=== PATIENT | female | born 1985 | race American Indian/Alaskan Native ===

== ENCOUNTER 2021-02-15 15:06 | Emergency (ER) | payer MEDICAID ==
--- NOTE | 2021-02-15 15:39 | Event Note ---
ED Screening Note ED Screening Note: sent by [facility] for abnormal ultrasound LMP 12/09/20 [id number] believes she had miscarriage of this preg end of January vag bleeding This initial assessment/diagnostic orders/clinical plan/treatment(s) is/are subject to change based on patients health status, clinical progression and re- assessment by fellow clinical providers in the ED. Further treatment and workup at subsequent clinical providers discretion. Patient/guardian urged not to elope from the ED as their condition may be serious if not clinically assessed and managed. Initial orders include: ro retained product
[2021-02-15 15:41] VITALS: BP 130/77
[2021-02-15 16:19] LABS: Bilirubin,Urine NEG (Negative); Blood,Urine NEG (Negative); Color,Urine Straw (Yellow); Mucus,Urine FEW /HPF; Urobilinogen,Urine < 2.0 mg/dL (<2.0)
[2021-02-15 17:06] LABS: Basophils # (Auto) 0.1 K/mm3 (0.0-0.1); Basophils % (Auto) 0.7 % (0.0-1.8); Eosinophils # (Auto) 0.1 K/mm3 (0.0-0.4); Hematocrit 39.1 % (30.3-42.9); Hemoglobin 13.2 gm/dl (10.1-14.3); Lymphocytes # (Auto) 2.3 K/mm3 (1.2-5.4); Lymphocytes % (Auto) 23.4 % (13.4-35.0); Mean Corpuscular HGB Conc 34 % (30-34); Mean Corpuscular Volume 85 fl (79-97); Monocytes # (Auto) 0.6 K/mm3 (0.0-0.8); Monocytes % (Auto) 6.2 % (0.0-7.3); Platelet Count 219 K/mm3 (140-440); Red Blood Count 4.58 M/mm3 (3.65-5.03); Red Cell Distribution Width 13.6 % (13.2-15.2)
[2021-02-15 17:15] LABS: Blood Urea Nitrogen 14 mg/dL (7-17); Calcium 9.3 mg/dL (8.4-10.2); Hemolysis Index 13
[2021-02-15 17:32] LABS: BUN/Creatinine Ratio 20
--- NOTE | 2021-02-15 17:39 | Ultrasound Report ---
ULTRASOUND OBSTETRIC INDICATION / CLINICAL INFORMATION: Abnormal ultrasound. TECHNIQUE: Transabdominal and Transvaginal. COMPARISON: None available. FINDINGS: GESTATIONAL SAC: A 4.0 mm cystic structure is seen in the endometrial canal that may indicate a gesta tional sac. This would correspond to gestational age of 5 weeks and 1 day. YOLK SAC: No significant abnormality. EMBRYO/FETUS: None identified. ADNEXA: Mildly complex cyst in the left ovary that may indicate a corpus luteal cyst. FREE FLUID: None. ADDITIONAL FINDINGS: There is a 7.6 mm fibroid in the posterior uterine fundus. IMPRESSION: 1. Possible gestational sac in the uterus was sec size corresponding to 5 weeks and 1 day. Depending on the HED value, follow-up ultrasound in one to 2 weeks can be performed to reevaluate for intrauter ine . Signer Name: Ayo Hernandez MD Signed: 02/15/2021 5:34 PM Workstation Name: [id number]
--- NOTE | 2021-02-15 18:15 | Emergency Department Report ---
ED General Adult HPI - General Chief complaint: Vaginal Bleeding Stated complaint: POSSIBLE ETOPIC Time Seen by Provider: 02/15/21 15:37 Source: patient Mode of arrival: Ambulatory Limitations: No Limitations - History of Present Illness Initial comments: 35-year-old female (A4; LMP late November) presents to the emergency department for further evaluation of abnormal ultrasound results. Patient was sent to the emergency department by her gasoline engine inspector due to concern for retained products of conception. Ultrasound performed in the clinic today was reportedly nonspecific. Patient states she began experiencing lower abdominal discomfort and vaginal bleeding on January 21. Symptoms largely resolved by the end of the month. When she returned to her gasoline engine inspector for confirmatory testing, her hCG was still positive. Patient states she has not experienced any abdominal pain or vaginal bleeding in the last 24 hours. No preceding trauma. She did not undergo medical or D&C at any point during this . Denies fever, chills, abdominal pain, vaginal bleeding, vaginal discharge, back pain, syncope. Denies other complaints at this time. - Related Data Allergies Allergy/AdvReac Type Severity Reaction Status Date / Time No Known Allergies Allergy Verified 02/15/21 15:41 ED Review of Systems ROS: Stated complaint: POSSIBLE ETOPIC Other details as noted in HPI Other: GENERAL: Negative for fever, chills, weight change, anorexia, fatigue. ENT: Negative for ear pain, difficulty hearing, sore throat, nasal congestion, epistaxis. CARDIOVASCULAR: Negative for chest pain, palpitations, lower extremity swelling. PULMONARY: Negative for cough, dyspnea, wheezing, orthopnea, cyanosis. GASTROINTESTINAL: Negative for abdominal pain, nausea, vomiting, diarrhea, constipation. MUSCULOSKELETAL: Negative for joint pain, joint swelling, myalgias, back pain, neck pain. NEUROLOGICAL: Negative for headache, seizure, syncope, paresthesias, weakness. INTEGUMENTARY: Negative for erythema, rash, diaphoresis, laceration, ecchymosis. HEMATOLOGICAL: Negative for hemoptysis, hematemesis, hematochezia, hematuria. PSYCHIATRIC: Negative for hallucinations, suicidal ideation, homicidal ideation, anxiety, depression. ED Past Medical Hx - Past Medical History Previous Medical History?: No - Social History Smoking Status: Current Some Day Smoker Substance Use Type: None ED Physical Exam - General Limitations: No Limitations - Other Other exam information: General: Awake and alert. No acute distress. Head: Atraumatic, normocephalic. Eyes: EOMI. Pupils are equal and round. Normal sclera and conjunctiva. ENT: Oral mucosa is moist. Normal pharyngeal exam. Neck: Supple. No lymphadenopathy. Pulmonary: No respiratory distress. Clear to auscultation bilaterally. Cardiac: Regular rate and rhythm. Pulses are palpable and equal bilaterally. No lower extremity cyanosis or edema. Skin: Warm and dry. No rashes. Abdomen: Soft, non-tender, non-protuberant. No guarding, rigidity, or rebound. Bowel sounds are normal. No organomegaly or masses noted. Pelvic: Female solar maintenance technician (Claire) present. Normal external inspection. Cervical os is closed. There is no cervical motion tenderness. No blood in the vaginal vault. No discharge. No adnexal tenderness or masses. No uterine tenderness. Back: Normal alignment. No CVA tenderness. Extremities: Symmetrical. Full range of motion intact. Neurological: Alert and oriented, appropriately interactive, no focal deficits. Psych: Cooperative. Appropriate mood and affect. Speech is evenly metered. Thoughts are logically construed. ED Course Vital Signs 02/15/21 15:38 Temperature 99.2 F Pulse Rate 81 Respiratory 20 Rate Blood Pressure 130/77 O2 Sat by Pulse 100 Oximetry ED Medical Decision Making - Lab Data Result diagrams: 02/15/21 16:36 02/15/21 16:36 - Radiology Data [facility] [address] [place] [address] Ultrasound Report Signed Patient: CELE CRUZ MR#: [id number] : 1985 Acct:[id number] Age/Sex: 35 / F ADM Date: 02/15/21 Loc: ED Attending Dr: Ordering Physician: ZIGGY ORTEGA Date of Service: 02/15/21 Procedure(s): US OB transvaginal Accession Number(s): [id number] cc: ZIGGY ORTEGA ULTRASOUND OBSTETRIC INDICATION / CLINICAL INFORMATION: Abnormal ultrasound. TECHNIQUE: Transabdominal and Transvaginal. COMPARISON: None available. FINDINGS: GESTATIONAL SAC: A 4.0 mm cystic structure is seen in the endometrial canal that may indicate a gestational sac. This would correspond to gestational age of 5 weeks and 1 day. YOLK SAC: No significant abnormality. EMBRYO/FETUS: None identified. ADNEXA: Mildly complex cyst in the left ovary that may indicate a corpus luteal cyst. FREE FLUID: None. ADDITIONAL FINDINGS: There is a 7.6 mm fibroid in the posterior uterine fundus. IMPRESSION: 1. Possible gestational sac in the uterus was sec size corresponding to 5 weeks and 1 day. Depending on the HED value, follow-up ultrasound in one to 2 weeks can be performed to reevaluate for intrauterine . Signer Name: Ayo Hernandez MD Signed: 02/15/2021 5:34 PM Workstation Name: [id number] Transcribed By: VIVIENNE Dictated By: Ayo Hernandez MD Electronically Authenticated By: Ayo Hernandez MD Signed Date/Time: 02/15/211733 DD/ 30 TD/TT: - Medical Decision Making Differential diagnosis including but not limited to: ectopic , retained products of conception, septic , incomplete , viable intrauterine On reevaluation, patient remains stable. Repeat abdominal exam is benign. Patient continues to deny fever, abdominal pain, vaginal bleeding, vaginal discharge. Urinalysis is unremarkable. Beta hCG is 11. Ultrasound shows possible gestational sac in the uterus corresponding to 5 weeks, 1 day. Cervical os closed. History and exam findings consistent with retained products of conception. Case discussed with Dr. Matthews, gasoline engine inspector, who agreed to evaluate patient in his office on February 17 for repeat sonographic evaluation. Patient has been instructed to call the office tomorrow to schedule a time. No clinical indication for further diagnostic work-up on an emergent basis at this time. Patient expressed understanding is agreeable to plan of care. Discharged home in stable condition. Strict return precautions provided. Repeat exam is unremarkable and benign. History, exam, diagnostic testing, and current condition do not suggest worrisome pathology to warrant further testing, continued ED treatment, admission, or surgical evaluation at this point. Given the low probability of a significant medical illness, it would be more likely to result in harm than benefit to perform further testing at this stage. Discussed findings, presumptive diagnosis, need for follow-up and specific signs/symptoms that should prompt immediate return to the emergency department. Instructions were explained in detail to the patient in addition to giving written discharge information. Patient expressed understanding and was given the opportunity to ask questions, all of which were satisfactorily answered prior to discharge home. Critical care attestation.: If time is entered above; I have spent that time in minutes in the direct care of this critically ill patient, excluding procedure time. ED Disposition Clinical Impression: Retained products of conception after miscarriage Disposition: TO HOME OR SELFCARE Is pt being admited?: No Does the pt Need Aspirin: No Condition: Stable Instructions: Managing Loss Additional Instructions: Follow-up with your gasoline engine inspector on Saturday for repeat HCG. Call tomorrow to schedule an appointment. Return to the emergency department immediately for new or worsening symptoms. Specifically, return to the emergency department immediately for fever, vomiting , abdominal pain, vaginal bleeding, or any other concerns. Referrals: CARMENZA MATTHEWS MD [Staff Physician] - 3-5 Days Time of Disposition: 18:38
== END 2021-02-15 18:43 | disposition home or self-care (01) ==
LOC: ED 15:06
DX: O36.4XX0 Maternal care for intrauterine death, not applicable or unspecified (principal); F17.200 Nicotine dependence, unspecified, uncomplicated; Z3A.01 Less than 8 weeks gestation of pregnancy
CPT/HCPCS: 36415; 76801; 76817; 80048; 81001; 84702; 85025; 86900; 86901